=== PATIENT | female | born 1975 | race Caucasian/White ===

== ENCOUNTER 2016-10-14 14:04 | Emergency (ER) | payer OTHER ==
[~2016-10-14] VITALS: Ht 165.1 cm; Wt 105.2 kg
[2016-10-14] MEDS ORDERED: EFFEXOR XR150 MG (14:22)
[2016-10-14] MEDS ORDERED: AMITRIPTYLINE H50 MG PO (14:23)
[2016-10-14] MEDS ORDERED: DEPAKOTE500 MG PO (14:23)
[2016-10-14] MEDS ORDERED: SYNTHROID50 MCG PO (14:24)
[2016-10-14] MEDS ORDERED: PROTONIX40 MG PO (15:37)
[2016-10-14] MEDS ORDERED: ONDANSETRON ODT8 MG PO (15:37)
== END 2016-10-14 16:04 | disposition home or self-care (01) ==
LOC: ED 14:04
DX: R10.13 Epigastric pain (principal); R10.31 Right lower quadrant pain; R10.32 Left lower quadrant pain; Z79.899 Other long term (current) drug therapy
CPT/HCPCS: 80053; 81001; 82150; 83690; 84703; 85025; 96361; 96374; 96375; 99283; J1885; J2405; J7120

== ENCOUNTER 2017-05-12 06:55 | Day surgery (SDC) | payer OTHER ==
[~2017-05-12] VITALS: Ht 165.1 cm; Wt 108.4 kg
[~2017-05-12 06:55] MED LIST: AMITRIPTYLINE H50 MG PO; DEPAKOTE500 MG PO; EFFEXOR XR150 MG; ONDANSETRON ODT8 MG PO; PROTONIX40 MG PO; SYNTHROID50 MCG PO; ULTRAM50 MG PO
[2017-05-12] MEDS ORDERED: IBUPROFEN800 MG PO (07:11)
[2017-05-12] MEDS ORDERED: AMOXICILLIN500 M1 PO (07:23)
--- NOTE | 2017-05-12 11:24 | NUR ---
05/12/17 1124 Gris Sargent 1118 PATIENT ARRIVES TO PACU AWAKE BUT DROWSY. RESP EVEN AND UNLABORED, MASK AT 6 LITERS.
--- NOTE | 2017-05-12 12:21 | NUR ---
PT ARRIVES TO DS RM 4 AWAKE AND ALERT. PT PROVIDED ICED WATER AND CRACKERS ON ARRIVAL. SCD'S IN PLACE, CALL LIGHT AT PT SIDE.
--- NOTE | 2017-05-12 13:31 | NUR ---
LE 1225: PT PROVIDED APPLE JUICE AND APPLE SAUCE PER REQUEST. PT TOLERATES CRACKERS AND ICED WATER PROVIDED ON ARRIVAL WELL. PT DENIES ANY N/V. PT CENTENO EMPTIED OF 150 MLS YELLOW URINE. CENTENO BALLOON EMPTIED OF 10MLS NS AND CENTENO REMOVED. PT AGREES SHE IS CAPABLE OF GETTING UP AND AMBULATING TO BR. PT ADVISED TO LET RN KNOW WHEN SHE FEELS READY TO VOID BY USING CALL LIGHT. PT IN ROOM AT BEDSIDE. PT RESTING QUITELY WATCHING TV. CALL LIGHT REMAINS AT PT SIDE.
[2017-05-12] MEDS ORDERED: PERCOCET 5-3251 EACH PO (13:59)
--- NOTE | 2017-05-12 14:23 | NUR ---
[id number]: PT USES CALL LIGHT TO EXPRESS TO DESIRE TO USE BR. PT AMBULATES TO BR WITH RN ASSIST WELL. PT ABLE TO VOID 100MLS RED URINE. PT BACK IN BED WITH CALL LIGHT IN REACH, SITTING AT BEDSIDE. NO FURTHER C/O'S AT THIS TIME. 1425: PT HAS MET ALL DC CRITERIA AND STATES SHE WOULD LIKE TO SEE DR. LEYVA BEFORE SHE DC'S SHE HAS A FEW QUESTIONS FOR HIM. DR. LEYVA OFFICE NOTIFIED AND WILL CALL BACK WITH AN ANSWER.
--- NOTE | 2017-05-12 16:14 | NUR ---
RETURNED REVIEWED DC INSTRUCTIONS NO QUESTIONS.
--- NOTE | 2017-05-13 07:53 | NUR ---
PT FRIENDLY, ALERT, ORIENTED AND SUPPORTED BY HER FIANCE ARIELLA. THEY BOTH WERE PLEASANT AND ATTENTIVE-SEEMED PREPARED AND HAD FEW QUESTIONS. PT DECLINED PRAYER AT THIS TIME, SHE SAID SHE HAS BEEN IN CONVERSATION WITH GOD ALREADY. I EXTENDED A BLESSING, WILL FOLLOW NEEDED
--- NOTE | 2017-05-19 12:16 | OR ---
[facility] [address] [place] [id number] Signed DATE OF OPERATION: 05/12/2017 SURGEON: Eric Leonard DO PREOPERATIVE DIAGNOSES: 1. Chronic pelvic pain. 2. Abnormal uterine bleeding. 3. Obesity. 4. Fibroid uterus. POSTOPERATIVE DIAGNOSES: 1. Chronic pelvic pain. 2. Abnormal uterine bleeding. 3. Obesity. 4. Fibroid uterus. 5. Endometriosis of the pelvic peritoneum. 6. Pelvic adhesive disease. PROCEDURES PERFORMED: 1. Hysteroscopic polypectomy. 2. Dilation and curettage. 3. Diagnostic laparoscopy. MALTER OPERATOR: Soham Kelly MD ANESTHESIA: General. ESTIMATED BLOOD LOSS: 25 mL. SPECIMENS: 1. Endocervical polyp. 2. Endometrial curettings. FINDINGS: Normal external genitalia with normal cervix. On hysteroscopy, she has multiple small endocervical polyps and normal endometrium without evidence of polyp or fibroid. On laparoscopy, the patient with normal right upper quadrant and appendix. She is status Electronically Signed By: ERIC LEONARD DO 05/19/17 1216 PATIENT NAME: YARY LIRIANO OPERATIVE REPORT DATE OF : 73 REPORT #: [id number] PHYSICIAN: ERIC LEONARD DO PCP: PERNELL FITZPATRICK MD REPORT IS CONFIDENTIAL AND NOT TO BE RELEASED WITHOUT AUTHORIZATION [facility] [address] [place] [id number] Signed post bilateral tubal ligation and ovaries are normal bilaterally. There is scattered endometrial implants of various morphology including white, red, and powder burn lesions throughout the pelvis including the ovarian fossa bilaterally, broad ligament bilaterally, and cul-de-sac. None of these lesions are appear to be deeply infiltrating. She does have dense uterine adhesions of the bladder to the anterior portion of the uterus extending up to the level of the round ligament bilaterally. There was one small posterior fibroid, it is incidentally noted. COMPLICATIONS: None. INDICATIONS: Ms. Liriano is a pleasant 41-year-old G4, P 2-1-1-2, white female who has a long history of chronic pelvic pain and abnormal uterine bleeding. Her pain is worse with periods and has now become more constant. Periods have become more heavy and is painful. An ultrasound demonstrated a 1 cm fibroid on the left. She underwent several attempted IUD placements by a nurse practitioner in our office. She is status post two deliveries. The patient also had an ultrasound that demonstrated a thickened endometrium suspicious of intracavitary lesion. The patient was scheduled for diagnostic laparoscopy, hysteroscopy, and dilation and curettage. Risks, benefits, and alternatives were discussed in detail with the patient. The patient understands and wished to proceed with the procedure. TECHNIQUE: The patient was taken to the operating room where a time-out was performed to confirm correct patient and correct procedure. General anesthesia was adequately established. The patient was prepped and draped in the dorsal lithotomy position with her feet in Yellofin stirrups. ICPs were on and running and no preop antibiotics or heparin were indicated. A weighted speculum was placed in the vagina and the anterior lip of the cervix was grasped with a single-tooth tenaculum. The cervix was dilated using Hegar dilators and an operative hysteroscope was placed in the cervical os and advanced under direct visualization into the uterine cavity. Endocervical polyps were noted and the endometrial cavity appeared normal with smooth endometrium, no polyps or fibroids noted. Bilateral tubal ostia were identified. A MyoSure LITE device was selected and used to perform circumferential curettage for endometrial sampling. A 2nd specimen was obtained for the endocervical polyps, which were excised sharply with MyoSure LITE device without complication. Hysteroscope was then withdrawn. A Prime Grid uterine manipulator was then placed. The surgeon's gloves were changed and attention was turned to the abdomen. A Madsen catheter had been previously inserted prior to the hysteroscopy, and base of the umbilicus was then infiltrated with 0.25% Marcaine with epinephrine. A 5 mm incision was made and a 5 mm trocar was placed under direct visualization without Electronically Signed By: ERIC LEONARD DO 05/19/17 1216 PATIENT NAME: YARY LIRIANO OPERATIVE REPORT DATE OF : 73 REPORT #: [id number] PHYSICIAN: ERIC LEONARD DO PCP: PERNELL FITZPATRICK MD REPORT IS CONFIDENTIAL AND NOT TO BE RELEASED WITHOUT AUTHORIZATION [facility] [address] [place] [id number] Signed complication. Low opening pressures were noted upon obtaining pneumoperitoneum and survey of the abdomen and pelvis was then performed. Normal right upper quadrant was noted and normal appendix was seen. Two assist ports 5 mm in diameter placed in the lower quadrants bilaterally under direct visualization without complication after infiltration of local anesthetic. Further survey of the pelvis was performed with scattered endometrial implants noted throughout the pelvis including the bilateral ovarian fossa, the broad ligament, the cul-de-sac and overlying the ureters bilaterally. Normal bilateral ovaries were seen and status post tubal ligation bilaterally was noted. The uterus has a small posterior fibroid. This is incidentally noted. However, the anterior wall of the uterus is densely adherent to the bladder. These scarring and adhesions continued up to the level of the round ligament bilaterally. Decision was made intraoperatively that the patient would benefit most from referral to a tertiary center minimally invasive specialist for hysterectomy and excision of endometriosis. The procedure was terminated and the pneumoperitoneum was reduced. Trocars were removed without difficulty and trocar sites were repaired using 4-0 Vicryl in subcuticular stitch. The wounds were then bandaged and the single-tooth tenaculum was removed. A small amount of oozing was noted coming from the cervical os, but this was a very small amount. The patient was then taken to the PACU in good and stable condition. Sponge, needle, and instrument count were correct x2 at the end of the procedure. Dr. Kelly was present and participated in all portions of the procedure. Eric Leonard DO JDW/MODL /[id number] Copies: ~ Electronically Signed By: ERIC LEONARD DO 05/19/17 1216 PATIENT NAME: YARY LIRIANO OPERATIVE REPORT DATE OF : 73 REPORT #: [id number] PHYSICIAN: ERIC LEONARD DO PCP: PERNELL FITZPATRICK MD REPORT IS CONFIDENTIAL AND NOT TO BE RELEASED WITHOUT AUTHORIZATION
== END 2017-05-12 15:45 | disposition home or self-care (01) ==
LOC: OPS 06:55 → DS 06:55 → OPS 10:00 → DS 10:00 → OPS 15:45
PROVIDERS: Obstetrics & Gynecology
PROC: 0WJJ4ZZ Inspection of Pelvic Cavity, Percutaneous Endoscopic Approach (ICD-10-PCS; 2017-05-12)
PROC: 0UBC8ZZ Excision of Cervix, Via Natural or Artificial Opening Endoscopic (ICD-10-PCS; principal; 2017-05-12 10:00)
PROC: 0UDB8ZZ Extraction of Endometrium, Via Natural or Artificial Opening Endoscopic (ICD-10-PCS; 2017-05-12 10:00)
DX: D25.9 Leiomyoma of uterus, unspecified (principal); N80.3 Endometriosis of pelvic peritoneum; E66.9 Obesity, unspecified; E03.9 Hypothyroidism, unspecified; F43.10 Post-traumatic stress disorder, unspecified; G89.29 Other chronic pain; M54.2 Cervicalgia; F32.9 Major depressive disorder, single episode, unspecified; Z68.39 Body mass index [BMI] 39.0-39.9, adult; Z79.2 Long term (current) use of antibiotics; Z79.899 Other long term (current) drug therapy; Z98.890 Other specified postprocedural states
CPT/HCPCS: 00952; J0330; J1100; J1885; J2250; J2405; J2704; J2710; J2765; J3010; J7120